=== PATIENT | female | born 1980 | race Caucasian/White ===

== ENCOUNTER → 2016-09-23 | Day surgery (SDC) | payer OTHER ==
[~2016-09-23] VITALS: Ht 172.7 cm; Wt 61.8 kg
[~2016-09-23] MED LIST: CLON0.5T3 PO; HYDR25CA PO; JNLF153028 PO; LIDOCAINE HCL 2% 2 ML VIAL (20MG/ML) ONE; MIDAZOLAM HCL 1 MG/ML 2ML VIAL ONE; PROB1TAB16 PO; PROPOFOL IV EMULSION 10 MG/ML 20 ML VIAL IV ONE; RANI300C PO; SERT25TA PO; SODIUM CHLORIDE 0.9% 500ML 500 ML IV ONE; SUCR1TAB PO
[2016-09-23 08:05] VITALS: Ht 172.7 cm; Wt 61.8 kg
--- NOTE | 2016-09-23 08:39 | Endo History and Physical ---
History & Physical Date of Service: Sep 23, 2016. Chief Complaint: REFLUX AFTER MEDS AND LUCIUS Referring Physician: DR HOGAN History of Present Illness Reflux s/p fundoplication Past Surgical History Hx Cardiac Surgery: Yes (ASD REPAIR) Hx Internal Defibrillator: No Hx Pacemaker: No Hx Abdominal Surgery: Yes (D&C) Hx of Implantable Prosthesis: No Hx Post-Op Nausea and Vomiting: No Hx Cancer Surgery: No Hx Thoracic Surgery: No Hx Orthopedic: No Hx Urinary Tract Surgery: No Family History None Social History Smoking Status: Never Smoker Hx Substance Use: No Hx Alcohol Use: No Allergies Coded Allergies: Proton Pump Inhibitors (Verified Allergy, Severe, TONGUE SWELLING., ) Pertussis Vaccine (Verified Allergy, Intermediate, SWELLING, 09/17/16) Current Medications Reported Home Medications Medications Dose Route/Sig Max Daily Dose Days Date Category Probiotic (Probiotic Product) 1 Tab Tab 1 Tab PO QAM 09/17/16 Reported Junel Fe 1.12/01 (Ethinyl Estradiol/Norethindrone) 1 Tab Tab 1 Tab PO HS 09/17/16 Reported Ranitidine Hcl 300 Mg Cap 1 Cap PO BID 09/17/16 Reported Vital Signs Weight (Kilograms): 61.82 Height (Feet): 5 Height (Inches): 8 Date Time Temp Pulse Resp B/P Pulse Ox O2 Delivery O2 Flow Rate FiO2 09/23/16 08:14 36.8 81 18 137/74 100 Room Air Physical Exam General Appearance: WD/WN, no apparent distress Respiratory/Chest: Auscultation: breath sounds normal, no wheezing Cardiovascular: Heart Auscultation: RRR, no murmurs Abdomen: Inspection & Palpation: soft, no tenderness, guarding & rebound Assessment and Plan EGD
--- NOTE | 2016-09-23 08:57 | Discharge Instructions ---
Endoscopy Patient Instructions Date / Procedure(s) Performed Sep 23, 2016. EGD Allergy Information Coded Allergies: Proton Pump Inhibitors (Verified Allergy, Severe, TONGUE SWELLING., ) Pertussis Vaccine (Verified Allergy, Intermediate, SWELLING, 09/17/16) Discharge Date / Findings Sep 23, 2016. Intact fundoplication. Biopsies obtained. Medication Instructions Restart Stopped Medication(s): Take ranitidine (Zantac) 150 mg with meals and bedtime. Use liquid antacid as needed. Provider Instructions Activity Restrictions - No exercising or heavy lifting for 24 hours. - Do not drink alcohol the day of the procedure. - Do not drive a car or operate machinery until the day after the procedure. - Do not make any important decisions or sign important papers in 24 hours after the procedure. Following Day: - Return to full activity which may include returning to work/school. Diet Start your diet with liquids and light foods (jello, soup, juice, toast). Then eat your usual diet if not nauseated. Treatment For Common After Affects For mild abdominal pain, bloating, or excessive gas: - Rest - Eat lightly - Lie on right side Follow-Up Information Follow-up with DR HOGAN as scheduled Anesthesia Information What You Should Know You have had a procedure that required some medicine to reduce anxiety and discomfort. This treatment is called moderate sedation. After receiving the treatment, you may be sleepy, but you will be able to breathe on your own. The effects of the treatment may last for several hours. Follow these instructions along with Activity/Diet recommendations noted above: * Do NOT do anything where dizziness or clumsiness would be dangerous. * Rest quietly at home today, then you can be up and about tomorrow. * Have a responsible person stay with you the rest of today. * You may have had an I.V. today. If so, you may take the dressing off later today. Recommendations Call your doctor if: * Trouble breathing * Continuous vomiting for more than 24 hours * Temperature above 101 degrees * Severe abdominal pain or bloating * Pain not relieved by pain medicine ordered * There is increased drainage or redness from any incision * A large amount of rectal bleeding greater than 2-3 tablespoons. (If you had a polyp/s removed or have hemorrhoids, a small amount of blood - from the rectum is to be expected.) * You have any unanswered questions or concerns. IN THE EVENT OF A SERIOUS EMERGENCY, GO TO THE NEAREST EMERGENCY ROOM Your discharge instructions were prepared by provider Josh Tobin. Patient Instructions Signature Page Ryann Rodrigez Patient (or Guardian) Signature/Date: I have read and understand the instructions given to me by my caregivers. Caregiver/RN/Doctor Signature/Date: The above-named patient and/or guardian has received patient instructions on this date. + Original Patient Signature Page (only) stays with chart. Please make copy for patient.
--- NOTE | 2016-09-23 08:57 | GI REPORT ---
Procedure Date: 09/23/2016 8:21 AM Procedure: Upper GI endoscopy Indications: Heartburn, Assessment following Lloyd fundoplication Medicines: Monitored Anesthesia Care Complications: No immediate complications. Estimated blood loss: None. Estimated Blood Loss: Estimated blood loss: none. Procedure: Pre-Anesthesia Assessment: - Prior to the procedure, a History and Physical was performed, and patient medications, allergies and sensitivities were reviewed. The patient's tolerance of previous anesthesia was reviewed. - ASA Grade Assessment: II - A patient with mild systemic disease. After obtaining informed consent, the endoscope was passed under direct vision. Throughout the procedure, the patient's blood pressure, pulse, and oxygen saturations were monitored continuously. The Scope was introduced through the mouth, and advanced to the third part of duodenum. The upper GI endoscopy was accomplished with ease. The patient tolerated the procedure well. Findings: The upper third of the esophagus, middle third of the esophagus and lower third of the esophagus were normal. The Z-line was regular and was found 43 cm from the incisors. Biopsies were taken with a cold forceps for histology. Evidence of a Lloyd fundoplication was found in the cardia. The wrap appeared intact. This was traversed. A few small semi-sessile polyps were found in the cardia. Biopsies were taken with a cold forceps for histology. Normal mucosa was found in the entire examined stomach. Biopsies were taken with a cold forceps for Helicobacter pylori testing. The examined duodenum was normal. Verification of patient identification for the specimens was done by the physician and nurse using the patient's name, date and medical record number. Impression: - Normal upper third of esophagus, middle third of esophagus and lower third of esophagus. - Z-line regular, 43 cm from the incisors. Biopsied. - A Lloyd fundoplication was found. The wrap appears intact. - A few gastric polyps. Biopsied. - Normal mucosa was found in the entire stomach. Biopsied. - Normal examined duodenum. Recommendation: - Use Zantac (ranitidine) 150 mg PO with meals and bedtime. - Use calcium carbonate with magnesium hydroxide antacid PO as directed PRN. Josh Tobin M.D. Josh Tobin MD 09/23/2016 8:57:11 AM This report has been signed electronically. Note Initiated On: 09/23/2016 8:21 AM I attest to the content of the Intraoperative Record and orders documented therein, exceptions below
[2016-09-23 09:28] VITALS: BP 115/85; PULSE 75; O2SAT 100
--- NOTE | 2016-09-23 15:11 | Anesthesiology Progress Note ---
Anesthesia Post Op Note Date & Time Sep 23, 2016 at 15:11 Vital Signs Pain Intensity: 0 Vital Signs Past 12 Hours Date Time Temp Pulse Resp B/P Pulse Ox O2 Delivery O2 Flow Rate FiO2 09/23/16 09:28 75 18 115/85 100 Room Air 09/23/16 09:13 73 18 122/77 100 Room Air 09/23/16 08:58 79 18 119/75 100 Room Air 09/23/16 08:14 36.8 81 18 137/74 100 Room Air Notes Mental Status: alert / awake / arousable, participated in evaluation Pt Amnestic to Procedure: Yes Nausea / Vomiting: adequately controlled Pain: adequately controlled Airway Patency, RR, SpO2: stable & adequate BP & HR: stable & adequate Hydration State: stable & adequate Anesthetic Complications: no major complications apparent
== END | disposition home or self-care (01) ==
LOC: C.GI 07:54
PROVIDERS: ATTEND Internal Medicine Gastroenterology
DX: K29.70 Gastritis, unspecified, without bleeding (principal); K31.7 Polyp of stomach and duodenum; K21.9 Gastro-esophageal reflux disease without esophagitis; K20.9 Esophagitis, unspecified; Z98.890 Other specified postprocedural states

== ENCOUNTER 2016-10-15 08:24 | Emergency (ER) | payer OTHER ==
[~2016-10-15] VITALS: Ht 172.7 cm; Wt 62.6 kg
[~2016-10-15 08:24] MED LIST changes: -CLON0.5T3 PO; -HYDR25CA PO; -LIDOCAINE HCL 2% 2 ML VIAL (20MG/ML) ONE; -MIDAZOLAM HCL 1 MG/ML 2ML VIAL ONE; -PROPOFOL IV EMULSION 10 MG/ML 20 ML VIAL IV ONE; -SERT25TA PO; -SODIUM CHLORIDE 0.9% 500ML 500 ML IV ONE; -SUCR1TAB PO
[2016-10-15 08:28] VITALS: TEMP 36.7; Ht 172.7 cm; Wt 62.6 kg
[2016-10-15] MEDS ORDERED: SODIUM CHLORIDE 0.9% 1000ML 1,000 ML IV STA (08:47)
[2016-10-15] MEDS ORDERED: GI COCKTAIL PO STA (08:47)
--- NOTE | 2016-10-15 08:52 | EMERGENCY ROOM VISIT NOTE ---
History First contact with patient: 08:33 Chief Complaint: ABDOMINAL PAIN Stated Complaint: ABD. PAIN Nursing Triage Summary: Patient c/o mid upper abdominal pain and "really bad reflux" since last night. States she had EGD last month. History of Present Illness The patient is a 36 year old female who presents to the Emergency Room with complaints of epigastric abdominal pain and reflux. The patient has a long- standing history of GERD. She has had Lloyd fundoplication in the past. She had an EGD last month which was unremarkable. The patient takes 600 mg of Zantac daily. 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 She sees Dr. Tobin. The patient states that she has epigastric discomfort and feels burning in her esophagus and the back of her throat. She states she has some discomfort in the center of her chest. She rates her discomfort a 7/10. She denies any fevers. She denies any ear, sore throat or cough. She denies any vomiting. She denies any dark-colored stool, melena or hematochezia. She denies any urinary symptoms. Review of Systems A 10 system review of systems was completed with positives and pertinent negatives listed in the HPI. Past Medical/Surgical History Medical Problems: (1) Gastroparesis Social History Smoking Status: Never Smoker Marital Status: Current/Historical Medications Scheduled Ethinyl Estradiol/Norethindr (), 1 TAB PO HS Probiotic Product (Probiotic), 1 TAB PO QAM Ranitidine Hcl (Ranitidine Hcl), 1 CAP PO BID Scheduled PRN Sucralfate (Sucralfate), 1 TAB PO QID PRN for REFUX Allergies Coded Allergies: Proton Pump Inhibitors (Verified Allergy, Severe, TONGUE SWELLING., ) Pertussis Vaccine (Verified Allergy, Intermediate, SWELLING, 10/15/16) Physical Exam Vital Signs Date Time Temp Pulse Resp B/P Pulse Ox O2 Delivery O2 Flow Rate FiO2 10/15/16 11:33 73 124/74 99 Room Air 10/15/16 10:24 73 18 115/69 10/15/16 09:15 75 10/15/16 08:28 36.7 79 16 122/76 100 Room Air Physical Exam VITALS: Vitals are noted on the nurse's note and reviewed by myself. Vital signs stable. The patient is afebrile. GENERAL: This is a 36-year-old female, in no acute distress, nondiaphoretic, well-developed well-nourished. SKIN: The skin was without rashes, erythema, edema, or bruising. There is no tenting of the skin. Capillary reflex less than 2 seconds. HEAD: Normocephalic atraumatic. EARS: The external ears are normal in appearance. EYES: Pupils equal round and reactive to light and accommodation. Conjunctivae without injection, sclerae without icterus. Extraocular movements intact. NOSE: Patent, turbinates without inflammation or discharge. MOUTH: Mucous membranes moist. Tonsils are not enlarged. Pharynx without erythema or exudate. Uvula midline. Airway patent. Tongue does not deviate. NECK: Supple without nuchal rigidity. No JVD. HEART: Regular rate and rhythm without murmurs gallops or rubs. LUNGS: Clear to auscultation bilaterally without wheezes, rales or rhonchi.No retractions or accessory muscle use. ABDOMEN: Positive bowel sounds x 4. Soft, mild epigastric tenderness, without masses or organomegaly. Kelly sign negative. MUSCULOSKELETAL: No muscle atrophy, erythema, or edema noted. Full range of motion in all extremities. Normal gait. Strength 5/5 throughout. NEURO: Patient was alert and oriented to person place and time. No focal neurological deficits. Medical Decision & Procedures ER Provider Diagnostic Interpretation: SINGLE VIEW CHEST CLINICAL HISTORY: Generalized abdominal pain. Gastroesophageal reflux. FINDINGS: 2 AP, portable, upright chest radiographs are obtained. No prior studies are available for comparison at the time of dictation. The examination is degraded by portable technique and patient rotation. Surgical wires project over the right mid chest. The cardiomediastinal silhouette is unremarkable. The lungs appear mildly hyperinflated, likely due to good inspiratory result. The lungs and pleural spaces are clear. No pneumothorax is seen. The bony thorax is grossly intact. Surgical clips project over the esophageal hiatus. IMPRESSION: 1. The lungs are clear. 2. Postoperative findings as above. Correlation with the patient's surgical history will be required. Laboratory Results 10/15/16 08:55 Red Blood Count 4.86, Mean Corpuscular Volume 92.6, Mean Corpuscular Hemoglobin 31.9, Mean Corpuscular Hemoglobin Concent 34.4, Mean Platelet Volume 9.1, Neutrophils (%) (Auto) 55.6, Lymphocytes (%) (Auto) 34.0, Monocytes (%) (Auto) 8.5, Eosinophils (%) (Auto) 1.1, Basophils (%) (Auto) 0.6, Neutrophils # (Auto) 2.96, Lymphocytes # (Auto) 1.81, Monocytes # (Auto) 0.45, Eosinophils # (Auto) 0.06, Basophils # (Auto) 0.03 10/15/16 08:55 Test 10/15/16 08:55 White Blood Count 5.32 K/uL (4.8-10.8) Red Blood Count 4.86 M/uL (4.2-5.4) Hemoglobin 15.5 g/dL (12.0-16.0) Hematocrit 45.0 % (37-47) Mean Corpuscular Volume 92.6 fL (80-100) Mean Corpuscular Hemoglobin 31.9 pg (25-34) Mean Corpuscular Hemoglobin Concent 34.4 g/dl (32-36) Platelet Count 215 K/uL (130-400) Mean Platelet Volume 9.1 fL (7.4-10.4) Neutrophils (%) (Auto) 55.6 % Lymphocytes (%) (Auto) 34.0 % Monocytes (%) (Auto) 8.5 % Eosinophils (%) (Auto) 1.1 % Basophils (%) (Auto) 0.6 % Neutrophils # (Auto) 2.96 K/uL (1.4-6.5) Lymphocytes # (Auto) 1.81 K/uL (1.2-3.4) Monocytes # (Auto) 0.45 K/uL (0.11-0.59) Eosinophils # (Auto) 0.06 K/uL (0-0.5) Basophils # (Auto) 0.03 K/uL (0-0.2) RDW Standard Deviation 44.3 fL (36.4-46.3) RDW Coefficient of Variation 13.0 % (11.5-14.5) Immature Granulocyte % (Auto) 0.2 % Immature Granulocyte # (Auto) 0.01 K/uL (0.00-0.02) Urine Color YELLOW Urine Appearance CLOUDY (CLEAR) Urine pH >= 9.0 (4.5-7.5) Urine Specific [place] 1.023 (1.000-1.030) Urine Protein NEG (NEG) Urine Glucose (UA) NEG (NEG) Urine Ketones NEG (NEG) Urine Occult Blood NEG (NEG) Urine Nitrite NEG (NEG) Urine Bilirubin NEG (NEG) Urine Urobilinogen NEG (NEG) Urine Leukocyte Esterase NEG (NEG) Urine WBC (Auto) 1-5 /hpf (0-5) Urine RBC (Auto) 0-4 /hpf (0-4) Urine Hyaline Casts (Auto) 1-5 /lpf (0-5) Urine Epithelial Cells (Auto) 20-30 /lpf (0-5) Urine Bacteria (Auto) NEG (NEG) Urine Test NEG (NEG) Anion Gap 4.0 mmol/L (3-11) Est Creatinine Clear Calc Drug Dose 68.5 ml/min Estimated GFR () 73.8 Estimated GFR (Non- 63.6 BUN/Creatinine Ratio 12.2 (10-20) Calcium Level 8.9 mg/dl (8.5-10.1) Total Bilirubin 1.1 mg/dl (0.2-1) Aspartate Amino Transf (AST/SGOT) 17 U/L (15-37) Alanine Aminotransferase (ALT/SGPT) 23 U/L (12-78) Alkaline Phosphatase 53 U/L (45-117) Troponin I < 0.015 ng/ml (0-0.045) Total Protein 7.2 gm/dl (6.4-8.2) Albumin 3.9 gm/dl (3.4-5.0) Globulin 3.3 gm/dl (2.5-4.0) Albumin/Globulin Ratio 1.2 (0.9-2) Lipase 124 U/L (73-393) Thyroid Stimulating Hormone (TSH) 3.040 uIu/ml (0.300-4.500) Medications Administered Medications (Trade) Dose Ordered Sig/Ismael Route Start Time Stop Time Status Last Admin Dose Admin Sodium Chloride (Nss 1000ml) 1,000 ml @ 999 mls/hr Q1H1M STAT IV 10/15/16 08:47 10/15/16 09:47 DC 10/15/16 08:47 999 MLS/HR Al Hydroxide/Mg Hydroxide (Maalox Susp) 30 ml STK-MED ONCE .ROUTE 4/13/17 08:57 10/15/16 08:58 DC 10/15/16 08:55 30 ML Lidocaine HCl (Viscous Lidocaine 2% Soln) 20 ml STK-MED ONCE .ROUTE 10/15/16 08:58 10/15/16 08:59 DC 10/15/16 08:55 10 ML Procedure The patient was monitored on a bus driver/monitor. They maintained a normal sinus rhythm without ectopy. ECG Indication: chest pain Rate (beats per minute): 83 Rhythm: normal sinus Findings: no acute ischemic change Comparison ECG Date: no prior available ED Course The patient was seen and examined. Previous visits were reviewed. The patient does not have a fever or leukocytosis. She does not have any significant electrolyte abnormalities. Troponin was not elevated. TSH was within normal limits. Lipase was not elevated. Urine test was negative. An initial EKG had an auto interpretation of acute ST elevation PA. Upon review of this initial EKG, there were diffuse inverted p waves. I suspect that this was related to lead placement. The leads were rechecked and a second EKG was obtained which revealed a normal sinus rhythm with a rate of 83 bpm, incomplete right bundle-branch block but no acute arrhythmia or ischemia. The patient presents to the emergency department with epigastric abdominal pain and reflux. She is a long-standing history of GERD. She has had fundoplication in the past. She cannot take proton pump inhibitors. She states she has tried everything else. At this time, I did speak with Dr. Beltran. Romana mejia came to evaluate the patient in the emergency department. She states that she offered the patient an anti-spasmodic or nausea medications that the patient declines. She stated that the patient had relief from a GI cocktail for only moments and did not want any more. The patient apparently has follow-up with her surgeon in [place] as well as with gastroenterology. They also have pH manometry set up. The patient does not have any significant abdominal tenderness on exam. I do not suspect acute abdomen. She is afebrile and does not have a leukocytosis. She is not anemic. Troponin was not elevated. EKG does not reveal any acute arrhythmia or ischemia. The patient declined any additional medications. She has developed glossitis twice when taking proton pump inhibitors although these medications would likely be of significant benefit. The patient should return to the emergency Department with any worsening symptoms. Otherwise, she should keep her follow-up appointments as scheduled. The case was discussed with Dr. woodward who agrees with the assessment and treatment plan Medical Decision DIFFERENTIAL DIAGNOSIS: Aortic dissection, myocarditis, pericarditis, cervical disc disease, costochondritis, herpes zoster, rib fracture, pleuritis, pneumonia , pulmonary embolus, tension pneumothorax, anxiety disorder, somatoform disorder , choledocholithiasis, status, esophagitis, esophageal spasm, esophageal reflux , esophageal rupture, pancreatitis, peptic ulcer disease, cardiac ischemia, ST elevation PA, acute coronary syndrome, arrhythmia, coronary artery vasospasm. vavular heart disease, coronary artery disease, among others. Impression Primary Impression: GERD (gastroesophageal reflux disease) Departure Information Dispostion Home / Self-Care Condition GOOD Referrals No Doctor, Assigned (PCP) Patient Instructions [facility] Additional Instructions Follow up with GI as scheduled Return with worsening symptoms Problem Qualifiers Primary Impression: GERD (gastroesophageal reflux disease)
[2016-10-15] MEDS ORDERED: ALUMINUM/MAGNESIUM SUSP 30 ML UDC ONE (08:57)
[2016-10-15] MEDS ORDERED: LIDOCAINE HCL 2% VISC SOLN 20 ML UDC ONE (08:58)
[2016-10-15 09:12] LABS: BASO % 0.6 %; BASO ABS # 0.03 K/uL (0-0.2); COMPLETE YES; EOS % 1.1 %; IG% 0.2 %; LYMPH ABS # 1.81 K/uL (1.2-3.4); MEAN CELL VOLUME 92.6 fL (80-100); MEAN CORPUSCULAR HEMOGLOBIN 31.9 pg (25-34); MEAN CORPUSCULAR HGB CONC 34.4 g/dl (32-36); MEAN PLATELET VOLUME 9.1 fL (7.4-10.4); MONO % 8.5 %; NEUT % 55.6 %; PLATELET COUNT 215 K/uL (130-400); RED BLOOD COUNT 4.86 M/uL (4.2-5.4); WHITE BLOOD COUNT 5.32 K/uL (4.8-10.8)
[2016-10-15 09:14] LABS: URINE APPEARANCE CLOUDY (CLEAR); URINE BILIRUBIN NEG (NEG); URINE COLOR YELLOW; URINE EPITHELIAL CELL AUTO 20-30 /lpf (0-5); URINE NITRITE NEG (NEG); URINE PH >= 9.0 (4.5-7.5); URINE SPECIFIC GRAVITY 1.023 (1.000-1.030); UROBILINOGEN NEG (NEG); ZZUR CULT IF INDIC CLEAN CATCH NO
[2016-10-15 09:16] LABS: MANUAL MICROSCOPIC REQUIRED? NO; REVIEW REQ? NO
--- NOTE | 2016-10-15 09:18 | DIAGNOSTIC IMAGING REPORT ---
SINGLE VIEW CHEST CLINICAL HISTORY: Generalized abdominal pain. Gastroesophageal reflux. FINDINGS: 2 AP, portable, upright chest radiographs are obtained. No prior studies are available for comparison at the time of dictation. The examination is degraded by portable technique and patient rotation. Surgical wires project over the right mid chest. The cardiomediastinal silhouette is unremarkable. The lungs appear mildly hyperinflated, likely due to good inspiratory result. The lungs and pleural spaces are clear. No pneumothorax is seen. The bony thorax is grossly intact. Surgical clips project over the esophageal hiatus. IMPRESSION: 1. The lungs are clear. 2. Postoperative findings as above. Correlation with the patient's surgical history will be required. Electronically signed by: Trenton Hicks M.D. 10/15/2016 9:16 AM Dictated Date/Time: 10/15/2016 9:15 AM
[2016-10-15 09:35] LABS: ALT/SGPT 23 U/L (12-78); AST/SGOT 17 U/L (15-37); BLOOD UREA NITROGEN 13 mg/dl (7-18); BUN/CREATININE RATIO 12.2 (10-20); CALCIUM 8.9 mg/dl (8.5-10.1); CARBON DIOXIDE 30 mmol/L (21-32); CHLORIDE 109 mmol/L (98-107); GLUCOSE 92 mg/dl (70-99); POTASSIUM 4.4 mmol/L (3.5-5.1); SODIUM 143 mmol/L (136-145)
[2016-10-15] MEDS ORDERED: SUCR1TAB PO (09:35)
[2016-10-15 09:46] LABS: ALB/GLOB RATIO 1.2 (0.9-2); ALKALINE PHOSPHATASE 53 U/L (45-117)
[2016-10-15 11:33] VITALS: BP 124/74; PULSE 73; O2SAT 99
== END 2016-10-15 11:55 | disposition home or self-care (01) ==
LOC: C.EDB 08:25
DX: K21.9 Gastro-esophageal reflux disease without esophagitis (principal); K31.84 Gastroparesis; Z79.899 Other long term (current) drug therapy; Z88.8 Allergy status to other drugs, medicaments and biological substances

== ENCOUNTER → 2016-10-28 | Outpatient (CLI) | payer OTHER ==
[~2016-10-28] MED LIST changes: +CLON0.5T3 PO; +HYDR25CA PO; +SERT25TA PO; +SUCR1TAB PO
--- NOTE | 2016-10-28 09:27 | DIAGNOSTIC IMAGING REPORT ---
GI SERIES W/O KUB CLINICAL HISTORY: Epigastric discomfort. Heartburn. History of distant fundoplication. COMPARISON STUDY: Barium swallow dated 04/28/2016 FLUOROSCOPY TIME: 2.9 minutes. FINDINGS: The patient swallowed barium without difficulty. There is a distal esophageal deformity consistent with a this in fundoplication wrap. No esophageal masses are visualized. No gastric masses are visualized. There is no gastric outlet obstruction. The duodenal bulb appears normal. The ligament Treitz is located in the normal anatomical position. There is minimal disordered esophageal motility. IMPRESSION: 1. Minimal disordered esophageal motility 2. Distal esophageal deformity consistent with a Lloyd fundoplication 3. No gastric abnormalities identified. Electronically signed by: Darrell Ulloa M.D. 10/28/2016 9:25 AM Dictated Date/Time: 10/28/2016 9:22 AM
== END | disposition home or self-care (01) ==
LOC: C.RAD 08:50
PROVIDERS: ATTEND Nurse Practitioner Family
DX: K21.9 Gastro-esophageal reflux disease without esophagitis (principal); Z98.890 Other specified postprocedural states

== ENCOUNTER 2016-11-05 15:22 | Emergency (ER) | payer OTHER ==
[~2016-11-05] VITALS: Ht 172.7 cm; Wt 60.5 kg
[~2016-11-05 15:22] MED LIST changes: -CLON0.5T3 PO; -HYDR25CA PO; -SERT25TA PO
[2016-11-05 15:28] VITALS: TEMP 36.8; Ht 172.7 cm; Wt 60.5 kg
[2016-11-05] MEDS ORDERED: CLON0.5T3 PO (15:52)
[2016-11-05] MEDS ORDERED: SERT25TA PO (15:52)
[2016-11-05] MEDS ORDERED: HYDR25CA PO (17:05)
[2016-11-05 17:28] VITALS: BP 120/70; PULSE 75; O2SAT 98
--- NOTE | 2016-11-05 18:02 | EMERGENCY ROOM VISIT NOTE ---
History Report prepared by Sera: Uvaldo Friend Under the Supervision of: Dr. Paresh Warren M.D. First contact with patient: 15:39 Chief Complaint: ANXIETY Stated Complaint: ANXIETY History of Present Illness The patient is a 36 year old female who presents to the Emergency Room with complaints of worsened anxiety for the past week. The patient has been experiencing "paralyzing" panic attacks this week. She states that the increased anxiety was triggered by a minor cosmetic eyebrow procedure she had recently. She has been obsessing about the appearance of her eyebrows and the possibility of infection. She was told not to touch them but she frequently touches them. She also notes that she has had some stress associated with her son having a seizure on his birthday and a recent position change at work. The patient has been dealing with anxiety for quite some time but it has never been this bad. She has been taking Klonopin, which does help until it wears off. She recently started Zoloft but has only had two doses thus far. She was prescribed these medications by her PCP, who she has not seen about these recent panic attacks. The patient is scheduled to see a therapist for the first time in four days. She denies suicidal or homicidal ideations. She denies any fevers or recent illness and has otherwise been feeling well. The patient does deal with chronic GI issues, mostly severe reflux. She normally follows up with [facility] but is going to see [facility] for a second opinion regarding her GI issues. Source of History: patient Onset: one week ago Position: other (psyche) Quality: other (anxiety) Timing: worsening Modifying Factors (Relieving): other (Klonopin) Associated Symptoms: No fevers Review of Systems See [facility] for pertinent positives & negatives. A total of 10 systems reviewed and were otherwise negative. Past Medical & Surgical Medical Problems: (1) Gastroparesis Family History Cancer Diabetes mellitus Heart disease Social History Smoking Status: Never Smoker Marital Status: Current/Historical Medications Scheduled Clonazepam (Klonopin), 0.25 MG PO QPM Ethinyl Estradiol/Norethindr (), 1 TAB PO HS Ranitidine Hcl (Ranitidine Hcl), 1 CAP PO BID Sertraline (Zoloft), 25 MG PO QAM Scheduled PRN Hydroxyzine Pamoate (Vistaril), 1 CAP PO Q6 PRN for Anxiety/Agitation Sucralfate (Sucralfate), 1 TAB PO QID PRN for REFUX Allergies Coded Allergies: Proton Pump Inhibitors (Verified Allergy, Severe, TONGUE SWELLING., 11/05/16 ) Pertussis Vaccine (Verified Allergy, Intermediate, SWELLING, 11/05/16) Physical Exam Vital Signs Date Time Temp Pulse Resp B/P Pulse Ox O2 Delivery O2 Flow Rate FiO2 11/05/16 17:28 75 18 120/70 98 Room Air 11/05/16 15:28 36.8 88 16 123/74 97 Room Air Physical Exam Constitutional: Vital signs reviewed. Eyes: Pupils are equal round reactive to light. Conjunctiva are noninjected. ENT: Pharynx is clear without erythema or exudate. Mucous membranes are moist. Neck supple without meningeal signs. Respiratory: Clear to auscultation bilaterally. Breath sounds are equal bilaterally. Cardiovascular: Regular rate and rhythm. No rubs or gallops. GI: Soft, nondistended and nontender. Bowel sounds are present. Musculoskeletal: No peripheral edema. No lower extremity tenderness. Integumentary: No cyanosis. No signs of infection to her eyebrows. Neurological: The patient is awake and alert. No focal deficits. Psychiatric: Anxious appearing. Medical Decision & Procedures ED Course 1541: The patient was evaluated in room A6. A complete history and physical exam was performed. 1704: The patient was evaluated by the mental health case repairer. She says that the patient does not meet inpatient criteria. She recommended Vistaril. Medical Decision This is a 36-year-old female presents with anxiety and panic attacks. I did perform a limited focused review of portions of the patient's old chart on the electronic medical record. The patient has had no recent pertinent visits to this hospital. I did evaluate the patient as noted above. She is having worsening anxiety despite being on Klonopin. She has not suicidal or homicidal. She does not have any indications for inpatient admission. She does have an appointment to see a counselor in 4 days. I did have the mental health case repairer evaluate the patient. After evaluation she recommended Vistaril for her anxiety. The patient was agreeable to this plan and will follow up with her counselor. She was discharged with a prescription for Vistaril when necessary. Impression Primary Impression: Anxiety, generalized Scribe Attestation The scribe's documentation has been prepared under my direct and personally reviewed by me in its entirety. I confirm that the note above accurately reflects all work, treatment, procedures, and medical decision making performed by me. Departure Information Dispostion Home / Self-Care Prescriptions Hydroxyzine Pamoate (VISTARIL) 25 Mg Cap 1 CAP PO Q6 Y for Anxiety/Agitation, #20 CAP 1 Refill Prov: Paresh Warren M.D. 11/05/16 Referrals No Doctor, Assigned (PCP) Forms HOME CARE DOCUMENTATION FORM, IMPORTANT VISIT INFORMATION Patient Instructions Anxiety Disorder, ED Panic Attack, My [facility] Additional Instructions You have been examined and treated today on an emergency basis only. This is not a substitute for, or an effort to provide, complete comprehensive medical care. It is impossible to recognize and treat all injuries or illnesses in a single emergency department visit. It is therefore important that you follow up closely with your physician. Call as soon as possible for an appointment. Return for worsening symptoms or if you develop thoughts of hurting yourself or any other concerning symptoms. Vistaril can make you sleepy and so do not take it with your Klonopin.
== END 2016-11-05 17:28 | disposition home or self-care (01) ==
LOC: C.EDB 15:24 → C.EDA 17:28
DX: F41.1 Generalized anxiety disorder (principal); K31.84 Gastroparesis; Z79.899 Other long term (current) drug therapy; Z88.8 Allergy status to other drugs, medicaments and biological substances; Z80.9 Family history of malignant neoplasm, unspecified; Z83.3 Family history of diabetes mellitus; Z82.49 Family history of ischemic heart disease and other diseases of the circulatory system

== ENCOUNTER → 2016-11-26 | Outpatient (CLI) | payer OTHER ==
[~2016-11-26] MED LIST changes: +CLON0.5T3 PO; +HYDR25CA PO; -PROB1TAB16 PO; +SERT25TA PO
[2016-11-26 12:05] LABS: HEMATOCRIT 46.3 % (37-47); MEAN CELL VOLUME 94.5 fL (80-100); MEAN CORPUSCULAR HEMOGLOBIN 31.6 pg (25-34); MEAN CORPUSCULAR HGB CONC 33.5 g/dl (32-36); MEAN PLATELET VOLUME 10.1 fL (7.4-10.4); PLATELET COUNT 196 K/uL (130-400); WHITE BLOOD COUNT 6.09 K/uL (4.8-10.8)
[2016-11-26 12:27] LABS: ALT/SGPT 19 U/L (12-78); AST/SGOT 13 U/L (15-37); BLOOD UREA NITROGEN 9 mg/dl (7-18); BUN/CREATININE RATIO 10.6 (10-20); CARBON DIOXIDE 29 mmol/L (21-32); CHLORIDE 109 mmol/L (98-107); CREATININE 0.88 mg/dl (0.60-1.20); ESTIMATED AVERAGE GLUCOSE 108 mg/dl; GLUCOSE 73 mg/dl (70-99); HA1C FLAG Normal (Normal); SODIUM 141 mmol/L (136-145)
[2016-11-26 12:29] LABS: ALB/GLOB RATIO 1.3 (0.9-2); ALKALINE PHOSPHATASE 42 U/L (45-117)
[2016-12-03 08:39] LABS: CHROMOGRANIN A 32 ng/mL (< OR = 15); GASTRIN** TC 478X 79 pg/mL (<=100); VIT B1 PLASMA(THIAMIN)**90353 9 nmol/L (8-30)
== END | disposition home or self-care (01) ==
LOC: C.LAB1850 10:32
PROVIDERS: ATTEND Internal Medicine Endocrinology, Diabetes & Metabolism
DX: E16.2 Hypoglycemia, unspecified (principal); D51.9 Vitamin B12 deficiency anemia, unspecified; E55.9 Vitamin D deficiency, unspecified; R63.4 Abnormal weight loss; F43.22 Adjustment disorder with anxiety; R23.2 Flushing; K21.0 Gastro-esophageal reflux disease with esophagitis

== ENCOUNTER → 2016-12-04 | Outpatient (CLI) | payer OTHER ==
--- NOTE | 2016-12-04 08:33 | DIAGNOSTIC IMAGING REPORT ---
BILIARY ULTRASOUND CLINICAL HISTORY: K31.84 Gastroparesis COMPARISON STUDY: 11/07/2014 FINDINGS: The pancreas appears sonographically normal. There is no ductal dilatation. There is a suspected tiny gallbladder polyp. The gallbladder appears otherwise normal. There is no right-sided hydronephrosis. There is a hyperechoic focus within the left lobe of the liver measuring 29 x 13 x 16 mm. This remain similar to prior studies dating back to April 2013. This may represent focal fat. IMPRESSION: 1. Probable 3 mm gallbladder polyp. No calculi identified 2. No ductal dilatation 3. Ultrasonographically normal pancreas 4. Stable area of increased echogenicity within left hepatic lobe, likely representing focal fat Electronically signed by: Darrell Ulloa M.D. 12/04/2016 8:31 AM Dictated Date/Time: 12/04/2016 8:28 AM
== END | disposition home or self-care (01) ==
LOC: C.ULTR 07:47
PROVIDERS: ATTEND Internal Medicine
DX: K31.84 Gastroparesis (principal)

== ENCOUNTER → 2017-03-03 | Outpatient (CLI) | payer OTHER ==
[2017-03-03 12:24] LABS: URINE APPEARANCE CLEAR (CLEAR); URINE BILIRUBIN NEG (NEG); URINE COLOR DK YELLOW; URINE EPITHELIAL CELL AUTO 20-30 /lpf (0-5); URINE NITRITE POS (NEG); URINE SPECIFIC GRAVITY 1.011 (1.000-1.030); UROBILINOGEN NEG (NEG)
[2017-03-03 12:34] LABS: MANUAL MICROSCOPIC REQUIRED? NO; REVIEW REQ? NO
== END | disposition home or self-care (01) ==
LOC: C.LABBFT 10:24
PROVIDERS: ATTEND Internal Medicine
DX: N39.0 Urinary tract infection, site not specified (principal)

== ENCOUNTER → 2017-03-19 | Outpatient (CLI) | payer OTHER ==
--- NOTE | 2017-03-19 11:22 | DIAGNOSTIC IMAGING REPORT ---
LEFT KNEE 1 OR 2 VIEWS ROUTINE CLINICAL HISTORY: M25.562 Left knee [id number] pain COMPARISON: None. DISCUSSION: The bones and joint spaces appear intact. There is no evidence of fracture, dislocation or bony disease. There is no evidence for soft tissue swelling. IMPRESSION: Negative study. The above report was generated using voice recognition software. It may contain grammatical, syntax or spelling errors. Electronically signed by: Alfredo Walters M.D. 03/19/2017 11:21 AM Dictated Date/Time: 03/19/2017 11:20 AM
== END | disposition home or self-care (01) ==
LOC: C.RAD1850 11:02
PROVIDERS: ATTEND Internal Medicine
DX: M25.562 Pain in left knee (principal)

== ENCOUNTER → 2017-04-01 | Outpatient (CLI) | payer OTHER ==
[2017-04-01 17:29] LABS: URINE APPEARANCE CLEAR (CLEAR); URINE BILIRUBIN NEG (NEG); URINE COLOR YELLOW; URINE EPITHELIAL CELL AUTO >30 /lpf (0-5); URINE NITRITE NEG (NEG); URINE SPECIFIC GRAVITY 1.008 (1.000-1.030); UROBILINOGEN NEG (NEG); ZZUR CULT IF INDIC CLEAN CATCH YES
[2017-04-01 17:31] LABS: MANUAL MICROSCOPIC REQUIRED? NO; REVIEW REQ? NO
== END | disposition home or self-care (01) ==
LOC: C.LABBFT 13:02
PROVIDERS: ATTEND Internal Medicine
DX: N39.0 Urinary tract infection, site not specified (principal)

== ENCOUNTER → 2017-05-12 | Outpatient (CLI) | payer OTHER | END | disposition home or self-care (01) | LOC: C.LAB 12:21 | PROVIDERS: ATTEND Physician Assistant | DX: F42.8 Other obsessive-compulsive disorder (principal) ==

== ENCOUNTER 2017-08-18 03:50 | Emergency (ER) | payer OTHER ==
[~2017-08-18] VITALS: Ht 172.7 cm; Wt 71.5 kg
[2017-08-18 03:58] VITALS: TEMP 36.7; Ht 172.7 cm; Wt 71.5 kg
[2017-08-18] MEDS ORDERED: ASPIRIN 81 MG CHEW PO STA (04:19)
--- NOTE | 2017-08-18 04:23 | EMERGENCY ROOM VISIT NOTE ---
History Report prepared by Sera: Scarlett Vann Under the Supervision of: Dr. Angelina Chan M.D. First contact with patient: 04:06 Chief Complaint: RESPIRATORY PROBLEMS Stated Complaint: WHEEZING,BACK PAIN History of Present Illness The patient is a 37 year old female who presents to the Emergency Room with complaints of worsening respiratory problems starting 3 days ago. The patient states that she had strep throat for the past few weeks. She states that she was started on Amoxicillin and when she finished it, but still had symptoms, she was started on Augmentin. She reports that she took her last dose yesterday. She complains of being wheezy, chest pain, back pain, and pain with a deep breath. The patient denies fever, cough, and leg pain. She notes that she take control. The patient notes a history of IBS and an atrial septal defect that was repaired in 1992. Source of History: patient Onset: 3 days ago Position: other (global) Quality: other (respiratory) Timing: worsening Modifying Factors (Worsening): breathing Associated Symptoms: + chest pain, + back pain, No fevers, No cough Note: The patient complains of being wheezy. The patient denies leg pain. Review of Systems See HPI for pertinent positives & negatives. A total of 10 systems reviewed and were otherwise negative. Past Medical & Surgical Medical Problems: (1) Gastroparesis (2) IBS (irritable bowel syndrome) Surgical Problems: (1) H/O congenital atrial septal defect (ASD) repair Family History Cancer Diabetes mellitus Gallbladder disease Heart disease Hypertension Social History Smoking Status: Never Smoker Marital Status: Housing Status: lives with significant other Occupation Status: employed Current/Historical Medications Scheduled Ethinyl Estradiol/Norethindr (), 1 TAB PO HS Ranitidine Hcl (Ranitidine Hcl), 1 CAP PO BID Sertraline (Zoloft), 25 MG PO QAM Scheduled PRN Sucralfate (Sucralfate), 1 TAB PO QID PRN for REFUX Allergies Coded Allergies: Proton Pump Inhibitors (Verified Allergy, Severe, TONGUE SWELLING., ) Pertussis Vaccine (Verified Allergy, Intermediate, SWELLING, 08/18/17) Physical Exam Vital Signs Date Time Temp Pulse Resp B/P (MAP) Pulse Ox O2 Delivery O2 Flow Rate FiO2 08/18/17 06:30 72 20 126/72 98 2/14/18 05:39 79 18 114/68 99 Room Air 08/18/17 04:14 83 08/18/17 04:10 81 20 141/90 99 Room Air 08/18/17 04:06 Room Air 08/18/17 03:58 36.7 81 20 128/78 96 Room Air Physical Exam Vital signs reviewed. General: Well-appearing, in no significant distress. HEENT: No scleral icterus, PERRLA, neck supple. Atraumatic. Cardiovascular: Regular rate and rhythm, no extra sounds. Pulmonary: Clear to auscultation bilaterally, normal work of breathing. Abdomen: Soft, nontender, nondistended, positive bowel sounds. Musculoskeletal: Atraumatic, no peripheral edema. Nontender to palpation over the anterior and posterior chest. Neurologic: Patient awake alert and oriented x 3 Skin: Warm, dry, no rash Medical Decision & Procedures ER Provider Diagnostic Interpretation: Radiology results as stated below per my review and radiologist interpretation: CHEST X-RAY: The results were interpreted by me. Normal. No focal lung consolidation. No failure. Normal mediastinal silhouette. No pneumothorax. CTA CHEST: No evidence of pulmonary embolus. No thoracic aortic dissection or aneurysm. Lungs are clear. No pleural effusion or pneumothorax. Heart, pericardium unremarkable. No significant adenopathy. No acute osseous abnormality. Upper abdomen demonstrates surgical clips within the upper abdomen, gastric splenic ligament, which is nonspecific. Radiologist: Darren Reddy MD Study ready at 05:29 and initial results transmitted at 06:03. Laboratory Results 08/18/17 04:15 Red Blood Count 5.15, Mean Corpuscular Volume 93.4, Mean Corpuscular Hemoglobin 31.3, Mean Corpuscular Hemoglobin Concent 33.5, Mean Platelet Volume 9.3, Neutrophils (%) (Auto) 47.1, Lymphocytes (%) (Auto) 42.9, Monocytes (%) (Auto) 6.4, Eosinophils (%) (Auto) 3.1, Basophils (%) (Auto) 0.5, Neutrophils # (Auto) 2.88, Lymphocytes # (Auto) 2.62, Monocytes # (Auto) 0.39, Eosinophils # (Auto) 0.19, Basophils # (Auto) 0.03 08/18/17 04:15 Test 2/14/18 04:15 08/18/17 04:24 White Blood Count 6.11 K/uL (4.8-10.8) Red Blood Count 5.15 M/uL (4.2-5.4) Hemoglobin 16.1 g/dL (12.0-16.0) Hematocrit 48.1 % (37-47) Mean Corpuscular Volume 93.4 fL (80-100) Mean Corpuscular Hemoglobin 31.3 pg (25-34) Mean Corpuscular Hemoglobin Concent 33.5 g/dl (32-36) Platelet Count 191 K/uL (130-400) Mean Platelet Volume 9.3 fL (7.4-10.4) Neutrophils (%) (Auto) 47.1 % Lymphocytes (%) (Auto) 42.9 % Monocytes (%) (Auto) 6.4 % Eosinophils (%) (Auto) 3.1 % Basophils (%) (Auto) 0.5 % Neutrophils # (Auto) 2.88 K/uL (1.4-6.5) Lymphocytes # (Auto) 2.62 K/uL (1.2-3.4) Monocytes # (Auto) 0.39 K/uL (0.11-0.59) Eosinophils # (Auto) 0.19 K/uL (0-0.5) Basophils # (Auto) 0.03 K/uL (0-0.2) RDW Standard Deviation 42.5 fL (36.4-46.3) RDW Coefficient of Variation 12.5 % (11.5-14.5) Immature Granulocyte % (Auto) 0.0 % Immature Granulocyte # (Auto) 0.00 K/uL (0.00-0.02) Anion Gap 7.0 mmol/L (3-11) Est Creatinine Clear Calc Drug Dose 70.5 ml/min Estimated GFR () 74.9 Estimated GFR (Non- 64.6 BUN/Creatinine Ratio 9.7 (10-20) Calcium Level 8.7 mg/dl (8.5-10.1) Total Bilirubin 0.6 mg/dl (0.2-1) Direct Bilirubin 0.2 mg/dl (0-0.2) Aspartate Amino Transf (AST/SGOT) 16 U/L (15-37) Alanine Aminotransferase (ALT/SGPT) 19 U/L (12-78) Alkaline Phosphatase 55 U/L (45-117) Total Protein 7.2 gm/dl (6.4-8.2) Albumin 3.7 gm/dl (3.4-5.0) Bedside D-Dimer > 450 ng/mlFEU (0-450) Bedside Troponin I < 0.030 ng/ml (0-0.045) Laboratory results per my review. Medications Administered Medications (Trade) Dose Ordered Sig/Ismael Route Start Time Stop Time Status Last Admin Dose Admin Aspirin (Aspirin Chew) 324 mg NOW STAT PO 08/18/17 04:19 08/18/17 04:21 DC 08/18/17 04:27 324 MG ECG Indication: SOB/dyspnea Rate (beats per minute): 87 Rhythm: normal sinus Findings: no acute ischemic change, no ectopy, other (poor quality baseline, diffuse T wave flattening) Change: Patient's electrocardiogram interpreted by me. ED Course 0406: Past medical records reviewed. The patient was evaluated in room B8. A complete history and physical examination was performed. 0419: Ordered Aspirin 324 mg PO. 0629: Upon reevaluation, the patient appeared to have improvement of her symptoms. I discussed findings with her. She verbalized agreement of the treatment plan. The patient was discharged home. Medical Decision Differential diagnosis: Acute coronary syndrome, pulmonary embolus, aortic dissection, musculoskeletal pain, pneumonia, pleural effusion, pneumothorax This patient was evaluated and appeared to be in no significant distress. IV access was obtained and laboratory work was drawn. Patient was placed on the cardiac specialist and found to be in a pool sinus rhythm. She was medicated with aspirin to chew. Chest x-ray was performed and reveals no evidence of focal lung consolidation or failure. Laboratory work reveals an elevated d-dimer, negative troponin. CT scan of the chest was performed and is negative for PE. Patient was advised of the findings. She will resume current activities. Use ibuprofen as needed for pain. She'll follow-up with her physician this week for reevaluation return to the ER for worsening of symptoms or any medical concerns. Medication Reconcilliation Current Medication List: was personally reviewed by me Blood Pressure Screening Patient's blood pressure: Elevated blood pressure Blood pressure disposition: Elevated BP felt to be situational Impression Primary Impression: Pleuritic chest pain Scribe Attestation The scribe's documentation has been prepared under my direction and personally reviewed by me in its entirety. I confirm that the note above accurately reflects all work, treatment, procedures, and medical decision making performed by me. Departure Information Dispostion Home / Self-Care Referrals RV. Jackson MD (PCP) Forms HOME CARE DOCUMENTATION FORM, IMPORTANT VISIT INFORMATION, WORK / SCHOOL INSTRUCTIONS Patient Instructions My [facility] [address] Additional Instructions Diagnosis: Pleurisy Ibuprofen 600 mg every 6 hours as needed for pain with food. Follow-up with your primary care physician this week for reevaluation. Return to the emergency department for worsening of symptoms or any medical concerns.
[2017-08-18 04:27] LABS: BASO % 0.5 %; BASO ABS # 0.03 K/uL (0-0.2); EOS % 3.1 %; EOS ABS # 0.19 K/uL (0-0.5); HEMATOCRIT 48.1 % (37-47); HEMOGLOBIN 16.1 g/dL (12.0-16.0); LYMPH % 42.9 %; LYMPH ABS # 2.62 K/uL (1.2-3.4); MEAN CELL VOLUME 93.4 fL (80-100); MEAN CORPUSCULAR HEMOGLOBIN 31.3 pg (25-34); MEAN CORPUSCULAR HGB CONC 33.5 g/dl (32-36); MEAN PLATELET VOLUME 9.3 fL (7.4-10.4); MONO % 6.4 %; MONO ABS # 0.39 K/uL (0.11-0.59); NEUT % 47.1 %; NEUT ABS # 2.88 K/uL (1.4-6.5); PLATELET COUNT 191 K/uL (130-400); RED CELL DISTRIBUTION WIDTH CV 12.5 % (11.5-14.5); RED CELL DISTRIBUTION WIDTH SD 42.5 fL (36.4-46.3); WHITE BLOOD COUNT 6.11 K/uL (4.8-10.8)
[2017-08-18 04:45] LABS: ALBUMIN 3.7 gm/dl (3.4-5.0); CALCIUM 8.7 mg/dl (8.5-10.1); CREATININE 1.08 mg/dl (0.60-1.20); POTASSIUM 3.9 mmol/L (3.5-5.1)
[2017-08-18 04:47] LABS: TOTAL PROTEIN 7.2 gm/dl (6.4-8.2)
[2017-08-18] MEDS ORDERED: OPTIRAY 320 IV PRN (05:15)
[2017-08-18] MEDS ORDERED: KETOROLAC TROMETHAMINE 30 MG/ML VIAL IV STA (06:16)
[2017-08-18 06:30] VITALS: BP 126/72; PULSE 72; O2SAT 98
--- NOTE | 2017-08-18 06:40 | DIAGNOSTIC IMAGING REPORT ---
CHEST 2 VIEWS ROUTINE HISTORY: 37 years-old Female chest pain acute atypical chest pain with wheezing COMPARISON: Chest radiograph 10/15/2016 TECHNIQUE: PA and lateral views of the chest FINDINGS: Surgical wires are again noted projecting over the right chest wall which are again noted to be fractured. Surgical clips project over the anterior mediastinum. Cardiomediastinal and hilar silhouettes are within normal limits. Lungs are hyperinflated without pneumothorax, pleural effusion, focal airspace consolidation or overt pulmonary edema. Bones of the chest appear grossly intact. Surgical clips project over the epigastrium. IMPRESSION: Mild hyperinflation without acute process. The above report was generated using voice recognition software. It may contain grammatical, syntax or spelling errors. Electronically signed by: Navin Varghese M.D. 08/18/2017 6:39 AM Dictated Date/Time: 08/18/2017 6:37 AM
--- NOTE | 2017-08-18 07:48 | DIAGNOSTIC IMAGING REPORT ---
CHEST CTA for PULMONARY ARTERIES CT DOSE: 233.19 mGy.cm HISTORY: Atypical chest pain. TECHNIQUE: Multiaxial CT images of the chest were performed following the intravenous administration of contrast to evaluate the pulmonary arteries. Maximal intensity projection images were also obtained. A dose lowering technique was utilized adhering to the principles of ALARA. COMPARISON STUDY: None. FINDINGS: There is a normal caliber thoracic aorta with no evidence for dissection. There is no evidence for pulmonary embolus. No pleural effusions. No pneumothorax. The liver and spleen are unremarkable. No mediastinal or hilar lymphadenopathy. The central airways are patent. There are at the gastric surgical clips. Small focal area of groundglass nodular opacities seen within the lingula. Small linear scarlike density within the right middle lobe. Metallic wire surrounding the right anterior fourth costochondral junction. This is consistent with old postoperative change. IMPRESSION: 1. No evidence for pulmonary embolus. 2. Small focal area of groundglass nodular opacities within the lingula. This favors a mild infectious bronchiolitis/pneumonia. Electronically signed by: David Nino M.D. 08/18/2017 7:47 AM Dictated Date/Time: 08/18/2017 7:38 AM
== END 2017-08-18 06:33 | disposition home or self-care (01) ==
LOC: C.EDB 03:51
DX: R07.1 Chest pain on breathing (principal); R06.2 Wheezing; M54.9 Dorsalgia, unspecified; R03.0 Elevated blood-pressure reading, without diagnosis of hypertension; R79.1 Abnormal coagulation profile; K58.9 Irritable bowel syndrome, unspecified; K31.84 Gastroparesis; Z79.3 Long term (current) use of hormonal contraceptives; Z87.74 Personal history of (corrected) congenital malformations of heart and circulatory system; Z88.8 Allergy status to other drugs, medicaments and biological substances; Z88.7 Allergy status to serum and vaccine; Z83.3 Family history of diabetes mellitus; Z83.79 Family history of other diseases of the digestive system; Z82.49 Family history of ischemic heart disease and other diseases of the circulatory system

== ENCOUNTER → 2017-09-07 | Outpatient (CLI) | payer OTHER ==
[~2017-09-07] MED LIST changes: -CLON0.5T3 PO; -HYDR25CA PO
== END | disposition home or self-care (01) ==
LOC: C.LABBFT 10:47
PROVIDERS: ATTEND Internal Medicine
DX: N39.0 Urinary tract infection, site not specified (principal)

== ENCOUNTER → 2017-09-21 | Outpatient (CLI) | payer OTHER ==
[2017-09-21 12:29] LABS: BASO % 0.7 %; BASO ABS # 0.03 K/uL (0-0.2); EOS % 4.5 %; HEMATOCRIT 43.1 % (37-47); HEMOGLOBIN 14.5 g/dL (12.0-16.0); IG# 0.01 K/uL (0.00-0.02); LYMPH % 35.1 %; LYMPH ABS # 1.56 K/uL (1.2-3.4); MEAN CELL VOLUME 94.7 fL (80-100); MEAN CORPUSCULAR HEMOGLOBIN 31.9 pg (25-34); MEAN CORPUSCULAR HGB CONC 33.6 g/dl (32-36); MEAN PLATELET VOLUME 9.4 fL (7.4-10.4); MONO % 9.5 %; MONO ABS # 0.42 K/uL (0.11-0.59); NEUT ABS # 2.22 K/uL (1.4-6.5); PLATELET COUNT 229 K/uL (130-400); RED CELL DISTRIBUTION WIDTH CV 13.7 % (11.5-14.5); RED CELL DISTRIBUTION WIDTH SD 47.1 fL (36.4-46.3); WHITE BLOOD COUNT 4.44 K/uL (4.8-10.8)
[2017-09-21 13:12] LABS: ALBUMIN 3.3 gm/dl (3.4-5.0); ALT/SGPT 17 U/L (12-78); AST/SGOT 14 U/L (15-37); BLOOD UREA NITROGEN 10 mg/dl (7-18); CALCIUM 8.3 mg/dl (8.5-10.1); CARBON DIOXIDE 26 mmol/L (21-32); CHOLESTEROL 114 mg/dl (0-200); CREATININE 0.98 mg/dl (0.60-1.20); GLUCOSE 92 mg/dl (70-99); POTASSIUM 4.4 mmol/L (3.5-5.1); SODIUM 140 mmol/L (136-145)
[2017-09-21 13:13] LABS: HEMOGLOBIN A1C 5.1 % (4.5-5.6)
[2017-09-21 13:21] LABS: ALKALINE PHOSPHATASE 53 U/L (45-117); LDL CHOLESTEROL CALCULATED 57 mg/dl; TOTAL PROTEIN 6.7 gm/dl (6.4-8.2)
== END | disposition home or self-care (01) ==
LOC: C.LABBFT 07:48
PROVIDERS: ATTEND Physician Assistant
DX: Z79.899 Other long term (current) drug therapy (principal)